=== PATIENT | male | born 1970 | race African-American/Black ===

== ENCOUNTER 2018-04-27 17:34 | Emergency (ER) | payer BC ==
[~2018-04-27] VITALS: Ht 185.4 cm; Wt 111.4 kg
[2018-04-27 17:41] VITALS: Ht 185.4 cm; Wt 111.4 kg
[2018-04-27] MEDS ORDERED: LISINOPRIL-HCT1 EAC8 PO (17:43)
[2018-04-27 18:31] LABS: APPEARANCE CLEAR (CLEAR); BILIRUBIN NEGATIVE (NEGATIVE); COLOR YELLOW (YELLOW); GLUCOSE NEGATIVE (NEGATIVE); KETONE SMALL mg/dL (NEGATIVE); NITRITE NEGATIVE (NEGATIVE); PROTEIN NEGATIVE (NEGATIVE); SPECIFIC GRAVITY 1.015 (1.005-1.020); UROBILINOGEN NORMAL (NORMAL)
[2018-04-27 18:32] LABS: RED CELLS - URINE OCC /hpf (0-5); WHITE CELLS - URINE NSEEN /hpf (0-5)
[2018-04-27 18:34] LABS: BASOPHILS 0.4 % (0-2); EOSINOPHILS 0.1 % (0-7); HEMATOCRIT 51.4 % (42.0-54.0); IMMATURE GRANULOCYTES 0.9 % (0-5); LYMPHOCYTES 24.3 % (15-50); MCH 29.8 pg (26.0-34.0); MEAN PLATELET VOLUME 9.7 fL (7.4-10.4); MONOCYTES 7.7 % (2-11); NEUTROPHILS 66.6 % (40-80); PLATELET COUNT 355 10x3/uL (130-400); RBC 6.05 10x6/uL (4.20-6.10); RDW 13.1 % (11.5-14.5); WBC 14.3 10x3/uL (4.8-10.8)
[2018-04-27 18:59] LABS: ALBUMIN 4.3 g/dL (3.4-5.0); ANION GAP 15.9 mmol/L (8-16); BILIRUBIN - TOTAL 0.95 mg/dL (0.2-1.3); CALCIUM 9.2 mg/dL (8.5-10.1); CARBON DIOXIDE 29.1 mmol/L (21.0-32.0); CREATININE - SERUM 1.4 mg/dL (0.6-1.3); PROTEIN - SERUM 8.7 g/dL (6.4-8.2)
[2018-04-27] MEDS ORDERED: NORVASC10 MG PO (20:11)
[2018-04-27] MEDS ORDERED: DOXYCYCLINE HY100 M2 PO (20:11)
[2018-04-27 20:25] VITALS: BP 138/83
== END 2018-04-27 20:25 | disposition home or self-care (01) ==
LOC: D.ER 17:34
PROVIDERS: Emergency Medicine
DX: N39.0 Urinary tract infection, site not specified (principal); R53.83 Other fatigue; I10 Essential (primary) hypertension; N28.9 Disorder of kidney and ureter, unspecified